=== PATIENT | male | born 1985 ===

== ENCOUNTER 2018-11-14 00:14 | Day surgery (SDC) | payer OTHER, BC ==
[~2018-11-14] VITALS: Ht 177.8 cm; Wt 108.9 kg
[~2018-11-14 00:14] MED LIST: AMPH20TA18 PO; CYCL-277 PO; DIPH-740 PO; MULT-820 PO; OLME40TA28 PO; OMEP-218 PO; TRAM-420 PO
[2018-11-14] MEDS ORDERED: NORMOSOL R SOLN(*) 1000 ML BAG 1,000 ML IV PRN (11:40)
[2018-11-14] MEDS ORDERED: MIDAZOLAM 2 MG/2 ML VIAL IVP PRN (11:40)
[2018-11-14] MEDS ORDERED: BACITRACIN 50000 UNIT/VIAL 50,000 UNIT in NS 0.9% IRRIG(*) 1000ML PLCT 1,000 ML IR PRN (11:40)
[2018-11-14] MEDS ORDERED: LIDOCAINE/SOD BICARB 8.4% SYR ID ONE (11:40)
[2018-11-14] MEDS ORDERED: ceFAZolin(*) 2GM/D5W 50ML 50 ML IVPB ONE (11:40)
[2018-11-14] MEDS ORDERED: FAMOTIDINE 20 MG TAB PO ONE (11:40)
[2018-11-14 11:49] VITALS: BP 128/85
[2018-11-14] MEDS ORDERED: DEXAMETHASONE SOD PHOS 10MG/ML ONE ×2 (12:04→13:51)
[2018-11-14] MEDS ORDERED: BUPIVACAIN 0.25% INJ 50ML VIAL ONE (12:05)
[2018-11-14] MEDS ORDERED: HYDROmorphone HCL 2 MG/ML SDV ONE (12:35)
[2018-11-14] MEDS ORDERED: fentaNYL CITR 100 MCG/2 ML AMP ONE ×2 (13:51→14:47)
[2018-11-14] MEDS ORDERED: ONDANSETRON 4 MG/2 ML VIAL ONE (13:51)
[2018-11-14] MEDS ORDERED: ROCURONIUM BR 10 MG/ML ONE (13:51)
[2018-11-14] MEDS ORDERED: PROPOFOL EMUL(*) 10MG/ML 20 ML 40 ML ONE (13:51)
[2018-11-14] MEDS ORDERED: SUGAMMADEX SOD 200 MG/2 ML SDV ONE (13:53)
[2018-11-14] MEDS ORDERED: LOR5/325 PO (15:00)
[2018-11-14] MEDS ORDERED: DIA5 PO (15:01)
[2018-11-14] MEDS ORDERED: DOCU240C84 PO (15:02)
--- NOTE | 2018-11-14 15:02 | OPERATIVE REPORT 1 ---
EVENT DATE: November 14, 2018 SURGEON: Triston Cedillo MD ANESTHESIOLOGIST: Henry Daley MD ANESTHESIA: General endotracheal. 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 POSTOPERATIVE DIAGNOSIS Right-sided L4-L5 and L5-S1 recurrent herniated nucleus pulposus with severe right radicular symptoms. PROCEDURE PERFORMED Revision L4-L5 discectomy and revision L5-S1 discectomy. IV FLUIDS 900 cc. ESTIMATED BLOOD LOSS 20 cc. IMPLANTS None. DRAINS None. SPECIMENS None. COMPLICATIONS None. DISPOSITION Post-anesthesia care unit. INDICATIONS FOR SURGERY Mr. Evans is a 33-year-old gentleman who is status post right sided L4-L5 and L5-S1 microdiscectomy for radicular symptoms a number of years ago. He returned to my clinic last week with a complaint of severe radiating pain, numbness and tingling down the right lower extremity. He had weakness in the extensor hallucis longus and a strongly positive cross straight-leg raise and straight- leg raise maneuver. His imaging studies showed no evidence of instability. The MRI demonstrated post-surgical changes at L4-L5 and L5-S1 with recurrent disc herniations contacting, compressing, and displacing the traversing L5 root at L4-L5 level and the traversing S1 at the L5-S1 level. Secondary to the severity of the symptoms, Mr. Evans was offered and elected to undergo L4-L5 and L5-S1 microdiscectomy revisions. Prior to surgery I explained in detail to the patient the possible risks of surgery. These risks include bleeding, infection, damage to surrounding structures, nerve root injury, spinal fluid leak, meningitis, , blindness, sexual dysfunction, persistent and/or worsening pain, need for further surgery. The patient understands that given the revision nature of the procedure, all complications are at a higher risk. The patient further understands that spinal surgery is more predictive at improving extremity discomfort than axial spine pain. DESCRIPTION OF PROCEDURE On the day of surgery, the patient was met in the preoperative hold area and all questions were answered. The operative site was identified and marked by myself. The patient was brought in good condition to the operating room and after succumbing to anesthesia, was positioned in the prone position on a Armaan table. All bony protuberances and soft tissues were well-padded in the standard fashion. Care was taken to maintain appropriate perfusion pressures during anesthesia. Preoperative antibiotics were dosed according to the appropriate timing schedule. At the conclusion of the procedure, sponge and needle counts were correct x2. Final timeout was undertaken to confirm correct patient, correct levels, and correct surgery. The patient was then prepped and draped in the standard sterile orthopedic fashion. A vertical incision was made overlying the intended surgical levels. Sharp dissection was carried down to the posterior elements and soft tissues were elevated off the posterior elements on the right side in a subperiosteal manner. A lateral radiograph was obtained to confirm appropriate spinal levels. Self-retaining rectors were placed in the interspace of L5-S1 and a curette was used to undermine the inferior insertion of the ligamentum flavum from the superior aspect of the S1 lamina. This was carried out around the medial border of the pars interarticularis and facet joint allowing us into the canal. The nerve root was carefully teased away from the disc below which it was significantly adherent to. We were ultimately able to tease that nerve root away and this exposed a large extruded disc fragment. This was taken out using pituitary rongeur and then we used a micropituitary to remove several other small fragments. Once all disc fragments had been removed, I was able to sweep anterior to the dura and the shoulder of the nerve root looking for any further disc fragments. There was good decompression noted. Attention was then turned to the L4-L5 level. Again, we entered the canal by elevating the reconstituted ligamentum flavum from the bone and surrounding soft tissue. I isolated the L5 nerve root and retracted it medially again having to spend considerable time teasing it away from its scarred in position on the disc. Once I was finally able to get it over the disc bulge, however, another very large disc fragment was encountered. This was removed and it was noted that there was a significant annular defect in that L4-L5 disc. I took out one very large fragment and several other smaller fragments and then further refined the edges of the disc to insure that there was no further compression of that L5 nerve root. Once I was convinced if this, I checked the foramina of both the L5 and the S1 nerve root with a Bowman probe and found them to be widely patent. The wound was then irrigated with copiously sterile saline solution and meticulous hemostasis was obtained. 2 mg of Decadron was infused around each of the L5 and S1 nerve roots and then the wound was closed in layers using interrupted sutures for the deep fascia, inverted interrupted sutures for the subcutaneous tissue and then a running subcuticular skin stitch. Sponge and needle counts were correct x2. POSTOPERATIVE CARE PLAN The patient will remain in the recovery area until he is ready for discharge. He will be discharged home with instructions to follow up in 2 weeks' time for wound check and examination. KODY
[2018-11-14 15:15] VITALS: BP 118/61
[2018-11-14] MEDS ORDERED: APAP/HYDROCODONE 325/5 TAB ONE (15:39)
[2018-11-14 15:45] VITALS: BP 113/57
[2018-11-14 16:00] VITALS: BP 107/75
[2018-11-14 16:09] VITALS: BP 103/73
--- NOTE | 2018-11-15 01:08 | RADIOLOGY IMAGING REPORT ---
FAC[place] [facility] [place] NAME: Kb Evans : 1985 MR: [id number] V: [id number] EXAM DATE: ORDERING PHYSICIAN: KEO GARCIA TECHNOLOGIST: Location: [facility] - [place] Patient: Kb Evans : 1985 Visit/Account:[id number] Date of Sevice: 11/14/2018 EXAMINATION: Crosstable lateral lumbar spine 11/14/2018 11:29 AM HISTORY: L4-S1 DISC HERNIATION COMPARISON: None available FINDINGS: Intraoperative crosstable lateral imaging of the lumbar spine was provided. Images demonst rate posterior retractors and a probe behind the S1 vertebral body. IMPRESSION: Intraoperative lumbosacral localization. Report Dictated By: Marques Nur MD at 11/15/2018 1:00 AM Report E-Signed By: Marques Nur MD at 11/15/2018 1:02 AM WSN:[id number]
== END 2018-11-14 15:15 | disposition home or self-care (01) ==
LOC: OR 00:14
PROVIDERS: ATTEND Orthopaedic Surgery
DX: M51.17 Intervertebral disc disorders with radiculopathy, lumbosacral region (principal)
CPT/HCPCS: 63030; 63035; 72020; J1100; J1170; J2250; J2405; J2704; J3010; J0690; J3490